=== PATIENT | female | born 1995 | race Caucasian/White ===

== ENCOUNTER → 2018-07-03 | Outpatient (CLI) | payer OTHER ==
[2018-07-06 00:40] LABS: C-PEPTIDE 7.5 ng/mL (1.1-4.4)
== END ==
LOC: M LAB 13:32
PROVIDERS: ATTEND Internal Medicine Endocrinology, Diabetes & Metabolism
DX: E11.65 Type 2 diabetes mellitus with hyperglycemia (principal); E04.0 Nontoxic diffuse goiter

== ENCOUNTER → 2018-07-31 | Outpatient (CLI) | payer OTHER | LOC: M LAB 16:29 | PROVIDERS: ATTEND Nurse Practitioner Family | DX: N91.2 Amenorrhea, unspecified (principal) ==

== ENCOUNTER → 2018-07-31 | Outpatient (CLI) | payer OTHER | LOC: M LAB 11:18 | PROVIDERS: ATTEND Internal Medicine Endocrinology, Diabetes & Metabolism | DX: E11.65 Type 2 diabetes mellitus with hyperglycemia (principal); E04.0 Nontoxic diffuse goiter ==

== ENCOUNTER 2018-09-05 07:14 | Emergency (ER) | payer OTHER ==
[~2018-09-05] VITALS: Ht 170.2 cm; Wt 109.1 kg
[2018-09-05] MEDS ORDERED: METF10004 PO (07:23)
[2018-09-05] MEDS ORDERED: LABE10TAB PO (07:23)
[2018-09-05] MEDS ORDERED: PREN1TAB14 PO (07:23)
[2018-09-05 08:34] LABS: BASO % 0.2 % (0.0-1.0); EOS # 0.1 10^3/uL (0.0-0.50); EOS % 1.1 % (0.0-3.0); HEMATOCRIT 35.7 % (36.0-47.0); HEMOGLOBIN 12.3 g/dl (12.0-15.5); LYMPH # 1.3 10^3/uL (1.5-6.5); LYMPH % 12.3 % (24.0-44.0); MEAN CORPUSCULAR HEMOGLOBIN 29.1 pg (27.0-33.0); MEAN CORPUSCULAR HGB CONC 34.5 g/dl (32.0-36.5); MEAN CORPUSCULAR VOLUME 84.6 fl (80.0-96.0); MONO # 0.6 10^3/uL (0.0-0.8); MONO % 5.5 % (0.0-5.0); NEUTROPHILS # 8.6 10^3/uL (1.8-7.7); NEUTROPHILS % 80.6 % (36.0-66.0); PLATELET COUNT, AUTOMATED 231 10^3/uL (150-450); RED BLOOD COUNT 4.22 10^6/uL (4.00-5.40); WHITE BLOOD COUNT 10.6 10^3/uL (4.0-10.0)
[2018-09-05 10:04] VITALS: BP 144/87
--- NOTE | 2018-09-05 10:05 | REP ---
FIRST TRIMESTER AND ENDOVAGINAL PROBE OB ULTRASOUND: 08/05/2018. Local history: Vaginal bleeding at 11 weeks. Findings: No prior study for this gestation. Transabdominal and endovaginal probes are utilized. There is a intrauterine gestational sac in the body and fundus of the uterus. By crown-rump length, it measures 6.1 cm corresponding to 12 weeks 4 days which would give an EDC of 03/16/2019. heart rate 160 and regular. There is an anterior fundal placenta with grade zero maturation characteristics. There is a subtle hypoechoic thin rim inferior to the placental tip measuring 4 mm thick x 35 x 35 mm. On EV probe, the cervix is slightly shortened at 2.3 cm. Color images of the cervix demonstrate multiple fairly prominent cervical vessels. There are no other findings. No visible pelvic free fluid. Impression: 1. Single intrauterine gestation at 12 weeks 4 days by crown-rump length which would give an EDC of 03/16/2019, by LMP EDC 03/12/2019. Heart rate 160 and regular. 2. Anterior fundal placenta, grade zero without previa. I suspect a subtle acute subchorionic hemorrhage inferior to placental tip 4 mm thick x 35 x 35 mm. 3. EV probe shows cervix slightly shortened at 2.3 cm. On color images, prominent cervical vessels are seen. Electronically Signed by Kannan Samuels MD 09/05/2018 09:14 P
[2018-09-06] MEDS ORDERED: LABE10TAB PO
[2018-09-06] MEDS ORDERED: METF10004 PO
[2018-09-06] MEDS ORDERED: PREN1TAB14 PO
== END 2018-09-05 10:10 | disposition home or self-care (01) ==
LOC: M ED 07:14
DX: O20.0 Threatened abortion (principal); O10.011 Pre-existing essential hypertension complicating pregnancy, first trimester; O24.111 Pre-existing type 2 diabetes mellitus, in pregnancy, first trimester; Z3A.12 12 weeks gestation of pregnancy; Z79.899 Other long term (current) drug therapy; O99.331 Smoking (tobacco) complicating pregnancy, first trimester; F17.210 Nicotine dependence, cigarettes, uncomplicated

== ENCOUNTER 2018-09-05 23:16 | Day surgery (SDC) | payer OTHER ==
[~2018-09-05] VITALS: Ht 175.3 cm; Wt 112.9 kg
[~2018-09-05 23:16] MED LIST: LABE10TAB PO; METF10004 PO; PREN1TAB14 PO
[2018-09-05] MEDS ORDERED: ONDANSETRON 4MG/2ML VIAL (J2405) As Ordered ONE (23:38)
[2018-09-05 23:39] LABS: BASO % 0.2 % (0.0-1.0); EOS # 0.1 10^3/uL (0.0-0.50); EOS % 0.5 % (0.0-3.0); HEMATOCRIT 33.6 % (36.0-47.0); HEMOGLOBIN 11.8 g/dl (12.0-15.5); LYMPH # 2.3 10^3/uL (1.5-6.5); LYMPH % 13.1 % (24.0-44.0); MEAN CORPUSCULAR HEMOGLOBIN 29.1 pg (27.0-33.0); MEAN CORPUSCULAR HGB CONC 35.1 g/dl (32.0-36.5); MONO # 1.1 10^3/uL (0.0-0.8); NEUTROPHILS % 79.8 % (36.0-66.0); PLATELET COUNT, AUTOMATED 300 10^3/uL (150-450); RED BLOOD COUNT 4.05 10^6/uL (4.00-5.40); WHITE BLOOD COUNT 17.6 10^3/uL (4.0-10.0)
[2018-09-05] MEDS ORDERED: NS 1,000 ML IV ONE (23:45)
[2018-09-05] MEDS ORDERED: ONDANSETRON 4MG/2ML VIAL (J2405) IV ONE (23:45)
[2018-09-05 23:50] LABS: INR 1.01; PROTHROMBIN TIME 13.4 SECONDS (12.1-14.4)
[2018-09-05 23:59] LABS: BLOOD UREA NITROGEN 8 MG/DL (7-18); CALCIUM LEVEL 8.9 MG/DL (8.5-10.1); CARBON DIOXIDE LEVEL 23 MEQ/L (21-32); CHLORIDE LEVEL 101 MEQ/L (98-107); CREATININE FOR GFR 0.58 MG/DL (0.55-1.30); GLOMERULAR FILTRATION RATE > 60.0 (>60); GLUCOSE, FASTING 170 MG/DL (70-100); SODIUM LEVEL 135 MEQ/L (136-145)
[2018-09-06] VITALS (7 sets, daily range): BP systolic 107–129; BP diastolic 54–79
[2018-09-06] MEDS ORDERED: LABE10TAB PO
[2018-09-06] MEDS ORDERED: fentaNYL 100 MCG/2 ML INJECTION (J3010) IV ONE
[2018-09-06] MEDS ORDERED: METF10004 PO
[2018-09-06] MEDS ORDERED: PREN1TAB14 PO
[2018-09-06] MEDS ORDERED: miSOPROStol 200 MCG TAB (S0191) As Ordered ONE (00:21)
[2018-09-06] MEDS ORDERED: METHYLERGONOVINE MALEATE 0.2 MG/ML VIAL (J2210) As Ordered ONE (00:22)
[2018-09-06] MEDS ORDERED: fentaNYL 100 MCG/2 ML INJECTION (J3010) As Ordered ONE (00:42)
[2018-09-06] MEDS ORDERED: dexameTHASONE 4 MG/ML 1ML VIAL (J1100) As Ordered ONE ×2 (00:42→00:47)
[2018-09-06] MEDS ORDERED: ONDANSETRON 4MG/2ML VIAL (J2405) As Ordered ONE ×2 (00:42→00:47)
[2018-09-06] MEDS ORDERED: MIDAZOLAM INJ 2 MG/2 ML VIAL (J2250) As Ordered ONE (00:42)
[2018-09-06] MEDS ORDERED: PROPOFOL 200 MG/20 ML VIAL As Ordered ONE (00:42)
[2018-09-06] MEDS ORDERED: LIDOCAINE 2% INJ 100 MG/5 ML SDV (FOR ANES.) As Ordered ONE (00:42)
[2018-09-06] MEDS ORDERED: ROCURONIUM BROMIDE 50 MG/5 ML VIAL As Ordered ONE (00:52)
[2018-09-06] MEDS ORDERED: ONDANSETRON 4MG/2ML VIAL (J2405) IV PRN (01:00)
[2018-09-06] MEDS ORDERED: fentaNYL 100 MCG/2 ML INJECTION (J3010) IV PRN (01:00)
[2018-09-06] MEDS ORDERED: LR 1,000 ML IV SCH ×2 (01:00→02:00)
[2018-09-06] MEDS ORDERED: PERCOCET 5MG/325MG TAB PO PRN (02:00)
[2018-09-06] MEDS: KETOROLAC 30 MG/ML VIAL (J1885) IV SCH ×2 (02:59→08:07)
[2018-09-06 07:58] LABS: HEMATOCRIT 25.6 % (36.0-47.0); MEAN CORPUSCULAR HEMOGLOBIN 29.5 pg (27.0-33.0); MEAN CORPUSCULAR HGB CONC 34.8 g/dl (32.0-36.5); MEAN CORPUSCULAR VOLUME 84.8 fl (80.0-96.0); PLATELET COUNT, AUTOMATED 226 10^3/uL (150-450); RED BLOOD COUNT 3.02 10^6/uL (4.00-5.40); WHITE BLOOD COUNT 14.2 10^3/uL (4.0-10.0)
[2018-09-06 08:14] LABS: HEMOGLOBIN 8.9 g/dl (12.0-15.5)
[2018-09-06] MEDS ORDERED: DOXYCYCLINE HYCLATE 100 MG TAB PO ONE (10:30)
--- NOTE | 2018-09-06 20:36 | RO ---
DATE OF PROCEDURE: 09/06/2018 PREPROCEDURE DIAGNOSIS: Missed . POSTPROCEDURE DIAGNOSIS: Missed . PROCEDURE: Evacuation and curettage SURGEON: Mandy Emerson MD INSTRUCTION DEAN: None. ANESTHESIA: General. ESTIMATED BLOOD LOSS: 800 mL. INTRAVENOUS FLUIDS: 1200 mL of lactated Ringer's solution. The patient also received one unit of packed red blood cells immediately postoperatively. SPECIMENS: Products of conception. ANTIBIOTICS: The patient received 200 mg of doxycycline postoperatively. OPERATIVE FINDINGS: A bedside ultrasound was performed that showed approximately a 13-week size fetus in the lower uterine segment, heart rate was observed. Exam under anesthesia: A large amount of clots were removed with active bleeding and cervix was dilated 3 cm with the fetus at the external os of the cervix. INDICATION FOR OPERATION: This patient is a 23-year-old who initially presented to the emergency room (ER) earlier that day with threatened miscarriage at 12 weeks and 4 days and she was discharged home in stable condition, with minimal amount of bleeding and followup in the office. She returned to the emergency department later that night after passing out at home following a large amount of bleeding. In the emergency department she was tachycardic with heart rate of 150s, initially hypertensive and with near syncopal episodes. I was called immediately to evaluate the patient. During my evaluation in the ER, she was actively bleeding, approximately a liter of blood loss in the ER. She was emergently taken down to the operating room, was consented for exam under anesthesia with dilation and curettage for incomplete . While preparing for exam under anesthesia, a bedside ultrasound was then performed, which demonstrated approximately a 13-week size fetus in the lower uterine segment with a large amount of clot within the uterus. Exam under anesthesia demonstrated some parts at the external os, and the cervix was dilated to 3 cm with a large amount of blood removed. Then, proceeded with evacuation of incomplete . DESCRIPTION OF PROCEDURE: The initial exam under anesthesia; the patient was then prepped and draped in a sterile fashion. A time-out in the operating room was then performed, identifying the patient, procedure to be performed, as well as drug allergies. A bivalve speculum was then reinserted, demonstrating a dilated cervix with parts at the external os. After removal of clots and bleeding, fetus was then teased out using Ring forceps, removing fetus intact. A #14 uterine curette was then advanced through the cervical os at the level of the fundus, and the uterus was then curetted in a 360-degree fashion with a moderate amount of tissue obtained. This was done in three passes. A sharp curette was then advanced through the cervical os to the level of the fundus and uterus was curetted in a 360-degree fashion with minimal amounts of tissue passed. Two final passes of uterine curette was then performed, it was productive of blood. The patient received a dose of 0.2 mg of Methergine for uterine hemostasis, as well as 800 mcg of misoprostol that was placed rectally. Bleeding again slowed down and became minimum. In and out catheter was then performed, productive of 100 mL of urine. Instruments were then removed from the patient's vagina. The patient was taken out of the lithotomy position, was awakened from general anesthesia and taken to recovery in stable condition. Counts were correct. MTDD
== END 2018-09-06 11:20 | disposition home or self-care (01) ==
LOC: M ED 23:16 → M SDC 23:39 → M MS5PR 09-06 02:35 → M SDC 09-06 02:35 → M MS5PR 09-06 11:20 → M SDC 09-06 11:20
PROVIDERS: ATTEND Obstetrics & Gynecology
DX: O02.1 Missed abortion (principal)
CPT/HCPCS: 36415; 59820; 80048; 85025; 85027; 85610; 85730; 86850; 86900; 86901; 86920; 88305; 96374; 96375; 96376; 99291; J1100; J1885; J2210; J2250; J2405; J3010

== ENCOUNTER 2018-09-21 02:40 | Emergency (ER) | payer OTHER ==
[~2018-09-21] VITALS: Ht 175.3 cm; Wt 110.5 kg
[2018-09-21 02:51] VITALS: BP 168/76
[2018-09-21] MEDS ORDERED: NS 500 ML IV ONE (03:30)
[2018-09-21] MEDS ORDERED: MORPHINE 4 MG/ML 1ML VIAL/SYRINGE (J2270) IV ONE (03:30)
[2018-09-21 03:33] LABS: BASO % 0.4 % (0.0-1.0); EOS # 0.1 10^3/uL (0.0-0.50); EOS % 0.8 % (0.0-3.0); HEMATOCRIT 29.1 % (36.0-47.0); HEMOGLOBIN 9.3 g/dl (12.0-15.5); LYMPH # 1.2 10^3/uL (1.5-6.5); LYMPH % 14.9 % (24.0-44.0); MEAN CORPUSCULAR HEMOGLOBIN 28.4 pg (27.0-33.0); MEAN CORPUSCULAR VOLUME 88.7 fl (80.0-96.0); MONO # 0.5 10^3/uL (0.0-0.8); MONO % 5.6 % (0.0-5.0); NEUTROPHILS # 6.5 10^3/uL (1.8-7.7); NEUTROPHILS % 78.1 % (36.0-66.0); PLATELET COUNT, AUTOMATED 287 10^3/uL (150-450); RED BLOOD COUNT 3.28 10^6/uL (4.00-5.40); WHITE BLOOD COUNT 8.3 10^3/uL (4.0-10.0)
[2018-09-21 03:55] LABS: ALT/SGPT 19 U/L (12-78); BILIRUBIN,DIRECT < 0.1 MG/DL (0.0-0.2); BILIRUBIN,TOTAL 0.2 MG/DL (0.2-1.0); BLOOD UREA NITROGEN 15 MG/DL (7-18); CALCIUM LEVEL 8.6 MG/DL (8.5-10.1); CARBON DIOXIDE LEVEL 27 MEQ/L (21-32); CHLORIDE LEVEL 108 MEQ/L (98-107); CREATININE FOR GFR 0.58 MG/DL (0.55-1.30); GLOMERULAR FILTRATION RATE > 60.0 (>60); GLUCOSE, FASTING 130 MG/DL (70-100); LIPASE 203 U/L (73-393); POTASSIUM SERUM 4.4 MEQ/L (3.5-5.1); SODIUM LEVEL 142 MEQ/L (136-145); TOTAL PROTEIN 7.2 GM/DL (6.4-8.2)
--- NOTE | 2018-09-21 05:12 | REPVR ---
EXAM: US Abdomen Limited, Right Upper Quadrant EXAM DATE/TIME: 09/21/2018 3:50 AM CLINICAL HISTORY: 23 years old, female; Pain; Abdominal pain; Epigastric; Additional info: Gallbladder eval TECHNIQUE: Real-time ultrasound of the abdomen with image documentation. Examination was focused on the right upper quadrant. COMPARISON: GALLBLADDER US 11/21/2014 4:02 PM FINDINGS: Liver: The liver is diffusely echogenic, consistent with fatty infiltration. Gallbladder: The gallbladder is unremarkable. No gallstones, gallbladder wall thickening or pericholecystic fluid. Negative sonographic March's sign. Common bile duct: Bile ducts are normal in caliber. CBD 4-5 mm. Pancreas: Pancreas is obscured by overlying bowel gas. Right kidney: The right kidney measures 14.3 cm in length and is unremarkable. Intraperitoneal space: No evidence of free fluid. IMPRESSION: 1. No acute abnormalities are identified. 2. No evidence of gallstones or biliary duct dilatation. 3. Fatty liver. Electronically signed by: Jean Marie Herrera On 09/21/2018 05:12:30 AM
== END 2018-09-21 05:35 | disposition home or self-care (01) ==
LOC: M ED 02:40
DX: K82.8 Other specified diseases of gallbladder (principal); E66.9 Obesity, unspecified; E11.9 Type 2 diabetes mellitus without complications; I10 Essential (primary) hypertension; K76.0 Fatty (change of) liver, not elsewhere classified; Z79.899 Other long term (current) drug therapy
CPT/HCPCS: 76705; 80048; 80076; 83690; 85025; 96361; 96374; 99284; J2270

== ENCOUNTER → 2018-10-02 | Outpatient (CLI) | payer OTHER ==
[2018-10-02 13:50] LABS: BLOOD UREA NITROGEN 12 MG/DL (7-18); CALCIUM LEVEL 9.1 MG/DL (8.5-10.1); CARBON DIOXIDE LEVEL 27 MEQ/L (21-32); CHLORIDE LEVEL 105 MEQ/L (98-107); CREATININE FOR GFR 0.51 MG/DL (0.55-1.30); GLOMERULAR FILTRATION RATE > 60.0 (>60); GLUCOSE, FASTING 90 MG/DL (70-100); POTASSIUM SERUM 4.4 MEQ/L (3.5-5.1); SODIUM LEVEL 140 MEQ/L (136-145)
== END ==
LOC: M LAB 12:25
PROVIDERS: ATTEND Internal Medicine Endocrinology, Diabetes & Metabolism
DX: E11.65 Type 2 diabetes mellitus with hyperglycemia (principal)

== ENCOUNTER → 2018-10-02 | Outpatient (CLI) | payer OTHER ==
[2018-10-03 10:40] LABS: DRVV SCREEN 32.9 SEC
[2018-10-03 10:48] LABS: PTT LUPUS TYPE ANTICOAG SCREEN 0.8 (0-1.2)
[2018-10-04 14:12] LABS: ANTI DOUBLE STRAND-DNA AB 1 IU/mL (0-9); ANTI THROMBIN 3 ANTIGEN IMMUNO 88 % (72-124); ANTI THROMBIN 3 FUNCT ACTIVITY 106 % (75-135); CARDIOLIPIN IGA ANTIBODY <9 APL U/mL (0-11); CARDIOLIPIN IGG ANTIBODY <9 GPL U/mL (0-14); CARDIOLIPIN IGM ANTIBODY <9 MPL U/mL (0-12); PROTEIN C FUNCTIONAL ACTIVITY 172 % (73-180); PROTEIN S FUNCTIONAL ACTIVITY 69 % (63-140); SSA SJOGRENS A <0.2 AI (0.0-0.9); SSB SJOGRENS B <0.2 AI (0.0-0.9)
== END ==
LOC: M LAB 12:19
PROVIDERS: ATTEND Obstetrics & Gynecology
DX: N96 Recurrent pregnancy loss (principal)

== ENCOUNTER 2019-05-26 10:11 | Emergency (ER) | payer OTHER ==
[~2019-05-26] VITALS: Ht 172.7 cm; Wt 96.3 kg
[2019-05-26] MEDS ORDERED: NEXP1IMP SC (10:29)
[2019-05-26] MEDS ORDERED: KETOROLAC 30 MG/ML VIAL (J1885) IV ONE (10:45)
[2019-05-26] MEDS ORDERED: NS 1,000 ML IV ONE (10:45)
[2019-05-26] MEDS ORDERED: ONDANSETRON 4MG/2ML VIAL (J2405) IV ONE (10:45)
[2019-05-26 10:49] LABS: BASO % 0.2 % (0.0-1.0); EOS % 0.4 % (0.0-3.0); HEMATOCRIT 39.1 % (36.0-47.0); LYMPH # 0.8 10^3/uL (1.5-5.0); LYMPH % 9.7 % (24.0-44.0); MEAN CORPUSCULAR HEMOGLOBIN 27.6 pg (27.0-33.0); MEAN CORPUSCULAR HGB CONC 33.2 g/dl (32.0-36.5); MONO # 0.2 10^3/uL (0.0-0.8); MONO % 2.7 % (0.0-5.0); NEUTROPHILS % 86.6 % (36.0-66.0); PLATELET COUNT, AUTOMATED 265 10^3/uL (150-450); RED BLOOD COUNT 4.71 10^6/uL (4.00-5.40); WHITE BLOOD COUNT 8.1 10^3/uL (4.0-10.0)
[2019-05-26 11:29] LABS: BLOOD UREA NITROGEN 9 MG/DL (7-18); CREATININE FOR GFR 0.56 MG/DL (0.55-1.30); GLOMERULAR FILTRATION RATE > 60.0 (>60); GLUCOSE, FASTING 161 MG/DL (70-100)
[2019-05-26 11:30] LABS: CARBON DIOXIDE LEVEL 24 MEQ/L (21-32); CHLORIDE LEVEL 108 MEQ/L (98-107); POTASSIUM SERUM 4.1 MEQ/L (3.5-5.1); SODIUM LEVEL 140 MEQ/L (136-145)
[2019-05-26 11:31] LABS: ALT/SGPT 22 U/L (12-78); BILIRUBIN,DIRECT < 0.1 MG/DL (0.0-0.2); BILIRUBIN,TOTAL 0.3 MG/DL (0.2-1.0)
[2019-05-26 11:32] LABS: ALBUMIN 4.2 GM/DL (3.2-5.2); LIPASE 170 U/L (73-393); TOTAL PROTEIN 7.4 GM/DL (6.4-8.2)
--- NOTE | 2019-05-26 11:34 | REP ---
Abdominal right upper quadrant ultrasound for right upper quadrant pain: There are are gallbladder calculi versus gallbladder sludge balls in the gallbladder neck. There is no gallbladder wall thickening or pericholecystic fluid. There is no intrahepatic or extrahepatic biliary duct dilatation. The common biliary duct measures 2 mm in diameter per the hepatic parenchyma is homogeneous but slightly hyperechoic compatible with hepato steatosis. There are no hepatic masses. The pancreas is obscured by bowel gas. The right kidney measures 12.7 x 6 point of by 71 0 cm and is normal size. There is no right renal calculus, hydronephrosis, solid mass or cystic mass. There is no right upper quadrant ascites. Impression: The study is limited because of bowel gas. There are sludge ball zone versus calculi versus combination in the gallbladder. There is no evidence of acute cholecystitis. No biliary duct dilatation. The pancreas is obscured by bowel gas. Electronically Signed by Janak Villalba MD 05/26/2019 11:25 A
[2019-05-26] MEDS ORDERED: ONDA4TAB6 PO (12:48)
[2019-05-26 12:55] VITALS: BP 181/84
== END 2019-05-26 13:08 | disposition home or self-care (01) ==
LOC: M ED 10:11
DX: K80.20 Calculus of gallbladder without cholecystitis without obstruction (principal); K82.8 Other specified diseases of gallbladder; E11.9 Type 2 diabetes mellitus without complications; I10 Essential (primary) hypertension; Z79.899 Other long term (current) drug therapy; Z79.3 Long term (current) use of hormonal contraceptives; F17.210 Nicotine dependence, cigarettes, uncomplicated
CPT/HCPCS: 76705; 80048; 80076; 83690; 84702; 85025; 96361; 96374; 96375; 99284; J1885; J2405

== ENCOUNTER 2019-05-28 09:46 | Inpatient (IN) | payer OTHER ==
[~2019-05-28] VITALS: Ht 172.7 cm; Wt 110.9 kg
[~2019-05-28 09:46] MED LIST changes: +NEXP1IMP SC; +ONDA4TAB6 PO
[2019-05-28] MEDS ORDERED: NS 1,000 ML IV ONE (10:45)
[2019-05-28 10:52] LABS: BASO % 0.1 % (0.0-1.0); EOS % 0.1 % (0.0-3.0); HEMATOCRIT 35.8 % (36.0-47.0); LYMPH # 1.1 10^3/uL (1.5-5.0); LYMPH % 7.5 % (24.0-44.0); MEAN CORPUSCULAR HGB CONC 33.5 g/dl (32.0-36.5); MEAN CORPUSCULAR VOLUME 83.4 fl (80.0-96.0); MONO # 1.3 10^3/uL (0.0-0.8); MONO % 8.8 % (0.0-5.0); NEUTROPHILS # 12.3 10^3/uL (1.5-8.5); PLATELET COUNT, AUTOMATED 229 10^3/uL (150-450); RED BLOOD COUNT 4.29 10^6/uL (4.00-5.40); WHITE BLOOD COUNT 14.8 10^3/uL (4.0-10.0)
[2019-05-28] MEDS ORDERED: KETOROLAC 30 MG/ML VIAL (J1885) IV ONE (11:00)
--- NOTE | 2019-05-28 11:23 | REP ---
Right upper quadrant sonography: History: Right upper quadrant pain. History of stones. Comparison sonography is from just 2 days ago, May 26, 2019. Sonographic findings: Scanning through right upper quadrant of the abdomen demonstrates two mobile echogenic shadowing foci measuring 6 and 9 mm in greatest diameter respectively in the gallbladder neck consistent with gallstones. Gallbladder wall measures 0.34 mm in thickness which is borderline. The common bile duct is normal measuring 0.5 cm in greatest diameter. No focal liver lesion is seen. Pancreas is obscured by abdominal gas. There is no evidence of ascites or right renal abnormality. The right kidney measures 14.1 x 6.8 x 6.0 cm. Impression: There are two mobile shadowing echogenic foci in the gallbladder neck region consistent with gallstones. Borderline gallbladder wall thickness. No pericholecystic fluid. Normal CBD. Electronically Signed by Ang Villalpando MD 05/28/2019 12:44 P
[2019-05-28 11:45] LABS: ALBUMIN 3.6 GM/DL (3.2-5.2); ALT/SGPT 27 U/L (12-78); BILIRUBIN,DIRECT 0.7 MG/DL (0.0-0.2); BILIRUBIN,TOTAL 1.9 MG/DL (0.2-1.0); BLOOD UREA NITROGEN 8 MG/DL (7-18); CALCIUM LEVEL 8.7 MG/DL (8.5-10.1); CARBON DIOXIDE LEVEL 24 MEQ/L (21-32); CHLORIDE LEVEL 103 MEQ/L (98-107); CK-MB VALUE MASS < 1.0 NG/ML (<3.6); CPK CREATINE PHOSPHOKINASE 28 U/L (26-192); CREATININE FOR GFR 0.62 MG/DL (0.55-1.30); GLOMERULAR FILTRATION RATE > 60.0 (>60); GLUCOSE, FASTING 134 MG/DL (70-100); LIPASE 134 U/L (73-393); MB/CK RELATIVE INDEX 3.57 (< OR =4); POTASSIUM SERUM 3.7 MEQ/L (3.5-5.1); SODIUM LEVEL 136 MEQ/L (136-145); TOTAL PROTEIN 6.7 GM/DL (6.4-8.2); TROPONIN I < 0.02 NG/ML (< 0.10)
[2019-05-28] MEDS ORDERED: cefTRIAXone SOD 1 GM in D5W MINI-BAG PLUS 50 ML IV ONE (12:15)
[2019-05-28] MEDS ORDERED: ONDA4TAB6 PO (12:53)
[2019-05-28] MEDS ORDERED: GLUCAGON FOR INJ 1 MG VIAL (J1610) SC PRN (14:00)
[2019-05-28] MEDS ORDERED: GLUCOSE 4 GM CHEW TABLET PO PRN (14:00)
[2019-05-28] MEDS ORDERED: MORPHINE 2 MG/ML 1ML VIAL (J2270) IV PRN (14:00)
[2019-05-28] MEDS ORDERED: DEXTROSE 50% 50 ML SYRINGE IV PRN (14:00)
[2019-05-28] MEDS ORDERED: ONDANSETRON 4MG/2ML VIAL (J2405) IV PRN (14:00)
[2019-05-28] MEDS ORDERED: ACETAMINOPHEN TAB 650MG DOSE (2X325MG) PO PRN (14:00)
[2019-05-28] MEDS: NS 1,000 ML IV SCH (14:54)
[2019-05-28 15:30] VITALS: BP 129/72
[2019-05-28] MEDS: PIPERACILLIN/TAZOBACTAM SOD 3.375 GM in D5W MINI-BAG PLUS 50 ML IV SCH ×2 (16:25→21:27)
[2019-05-28] MEDS: HumaLOG INSULIN (NovoLOG) PER UNIT SC SCH ×2 (18:00→23:24)
[2019-05-28] MEDS: KETOROLAC 30 MG/ML VIAL (J1885) IV SCH ×2 (18:16→23:19)
[2019-05-28 21:00] VITALS: BP 146/96
[2019-05-28] MEDS: PANTOPRAZOLE 40MG INJ (PROTONIX) (C9113) IV SCH (21:17)
[2019-05-28] MEDS: LABETALOL 100 MG TAB PO SCH (21:17)
--- NOTE | 2019-05-28 22:52 | HPE ---
DATE: 05/28/2019 CHIEF COMPLAINT: Right upper quadrant pain, history of gallstones. BRIEF HISTORY OF PRESENT ILLNESS: The patient is a 24-year-old female who went to the emergency room about 2 days ago for some abdominal pain that was persistent for the last day or so prior to that visit to the emergency room and essentially presented with some symptomatic biliary colic/possible subacute cholecystitis. When she was seen, her white count was normal except for a left shift, and she had normal liver function tests. She had some mild discomfort with palpation but no true peritoneal signs. She was discharged home with the plans to follow up in the surgical office. She presents with persistence of the abdominal pain in the right upper quadrant, and it seemed to be getting worse over today's entire day. And she presents with evidence of tenderness, pain in the right upper quadrant with positive March's both on ultrasound as well as on physical exam with elevated white count and mildly elevated bilirubin. Her past medical history is significant for a history of diabetes mellitus, history of hypertension, history of pelvic inflammatory disease, history of miscarriage, history of tonsillectomy. PHYSICAL EXAM: Reveals a 24-year-old female who looks stated age. HEENT is unremarkable. Neck: Supple without adenopathy. Lungs are clear to auscultation without crackles, wheezes or rhonchi. Heart is regular. Abdomen is soft, nondistended, but she definitely has some tenderness and pain in the right upper quadrant with a positive March's. Extremities: Warm, well perfused. IMPRESSION AND PLAN: The patient has evidence of cholecystitis on her clinical exam. I do feel that it is reasonable to give her IV fluids, IV antibiotics and will treat her with fluids for now. Will see how she does over the next 12 hours. The second issue obviously is the elevated bilirubin. Without elevated alkaline phosphatase or AST, ALT, I feel it is less likely to be a biliary duct obstruction. However, if her liver function tests seem to increase tomorrow, then I would recommend that we proceed with an magnetic resonance cholangiopancreatography (MRCP). And we will see how she does overnight being nothing by mouth and with antibiotics on board.
--- NOTE | 2019-05-28 23:21 | ECGEPIP ---
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
[2019-05-29] VITALS (7 sets, daily range): BP systolic 124–164; BP diastolic 71–96
[2019-05-29] MEDS: NS 1,000 ML IV SCH (00:48)
[2019-05-29] MEDS: PIPERACILLIN/TAZOBACTAM SOD 3.375 GM in D5W MINI-BAG PLUS 50 ML IV SCH ×4 (03:31→22:18)
[2019-05-29] MEDS: HumaLOG INSULIN (NovoLOG) PER UNIT SC SCH ×3 (06:00→18:00)
[2019-05-29] MEDS: KETOROLAC 30 MG/ML VIAL (J1885) IV SCH ×3 (06:09→17:58)
[2019-05-29 06:51] LABS: HEMATOCRIT 33.4 % (36.0-47.0); HEMOGLOBIN 10.6 g/dl (12.0-15.5); MEAN CORPUSCULAR HEMOGLOBIN 27.4 pg (27.0-33.0); MEAN CORPUSCULAR HGB CONC 31.7 g/dl (32.0-36.5); MEAN CORPUSCULAR VOLUME 86.3 fl (80.0-96.0); PLATELET COUNT, AUTOMATED 215 10^3/uL (150-450); RED BLOOD COUNT 3.87 10^6/uL (4.00-5.40); WHITE BLOOD COUNT 8.2 10^3/uL (4.0-10.0)
[2019-05-29 07:25] LABS: ALBUMIN 3.1 GM/DL (3.2-5.2); ALT/SGPT 29 U/L (12-78); BLOOD UREA NITROGEN 12 MG/DL (7-18); CALCIUM LEVEL 8.7 MG/DL (8.5-10.1); CARBON DIOXIDE LEVEL 26 MEQ/L (21-32); CHLORIDE LEVEL 110 MEQ/L (98-107); CREATININE FOR GFR 0.52 MG/DL (0.55-1.30); GLOMERULAR FILTRATION RATE > 60.0 (>60); GLUCOSE, FASTING 93 MG/DL (70-100); POTASSIUM SERUM 3.6 MEQ/L (3.5-5.1); SODIUM LEVEL 141 MEQ/L (136-145); TOTAL PROTEIN 6.9 GM/DL (6.4-8.2)
[2019-05-29] MEDS: PANTOPRAZOLE 40MG INJ (PROTONIX) (C9113) IV SCH ×2 (09:15→20:52)
[2019-05-29] MEDS: LABETALOL 100 MG TAB PO SCH ×2 (09:15→20:52)
--- NOTE | 2019-05-29 14:04 | IPN ---
DATE: 05/29/2019 The patient has made some good progress at this time and is much better than she was last night, but still having some discomfort and pain in the right upper quadrant. Overall she has been afebrile. White count is down to normal. On her physical exam, she still has some mild tenderness to deep palpation in the right upper quadrant, but without significant guarding, rebound or peritoneal signs. IMPRESSION AND PLAN: The patient has resolving cholecystitis. Will start her on a clear liquid diet. Fortunately, her liver function tests have returned to normal suggesting that she has no evidence of common bile duct stone and her cholecystitis is improving. Thus, will see how she does with the clear liquids today. Dr. Lovell will be covering her over the ensuing few days and he will determine our next course of action.
[2019-05-29] MEDS ORDERED: HumaLOG INSULIN (NovoLOG) PER UNIT SC SCH (21:00)
[2019-05-29] MEDS ORDERED: GLUCOSE 4 GM CHEW TABLET PO PRN (22:00)
[2019-05-29] MEDS ORDERED: DEXTROSE 50% 50 ML SYRINGE IV PRN (22:00)
[2019-05-29] MEDS ORDERED: GLUCAGON FOR INJ 1 MG VIAL (J1610) SC PRN (22:00)
[2019-05-30] VITALS: BP 154/83
[2019-05-30 04:00] VITALS: BP 157/83
[2019-05-30] MEDS ORDERED: LevoFLOXacin 500 MG TABLET PO SCH (06:00)
[2019-05-30] MEDS: KETOROLAC 30 MG/ML VIAL (J1885) IV SCH ×2 (06:00)
[2019-05-30] MEDS ORDERED: HumaLOG INSULIN (NovoLOG) PER UNIT SC SCH (07:30)
[2019-05-30 07:32] LABS: HEMATOCRIT 34.2 % (36.0-47.0); HEMOGLOBIN 11.5 g/dl (12.0-15.5); MEAN CORPUSCULAR HGB CONC 33.6 g/dl (32.0-36.5); MEAN CORPUSCULAR VOLUME 83.2 fl (80.0-96.0); PLATELET COUNT, AUTOMATED 249 10^3/uL (150-450); RED BLOOD COUNT 4.11 10^6/uL (4.00-5.40)
[2019-05-30 07:59] LABS: ALBUMIN 3.3 GM/DL (3.2-5.2); ALT/SGPT 53 U/L (12-78); BILIRUBIN,TOTAL 0.7 MG/DL (0.2-1.0); BLOOD UREA NITROGEN 10 MG/DL (7-18); CALCIUM LEVEL 8.9 MG/DL (8.5-10.1); CARBON DIOXIDE LEVEL 25 MEQ/L (21-32); CHLORIDE LEVEL 107 MEQ/L (98-107); CREATININE FOR GFR 0.47 MG/DL (0.55-1.30); GLOMERULAR FILTRATION RATE > 60.0 (>60); GLUCOSE, FASTING 102 MG/DL (70-100); POTASSIUM SERUM 3.7 MEQ/L (3.5-5.1); SODIUM LEVEL 143 MEQ/L (136-145); TOTAL PROTEIN 6.7 GM/DL (6.4-8.2)
[2019-05-30 08:00] VITALS: BP 168/97
[2019-05-30] MEDS ORDERED: LEVA1TAB2 PO (08:55)
[2019-05-30] MEDS: PANTOPRAZOLE 40MG INJ (PROTONIX) (C9113) IV SCH (09:00)
[2019-05-30 09:20] VITALS: BP 168/97
[2019-05-30] MEDS: LABETALOL 100 MG TAB PO SCH (09:20)
--- NOTE | 2019-06-24 18:23 | DSES ---
DATE OF ADMISSION: 05/28/2019 DATE OF DISCHARGE: 05/30/2019 PRINCIPAL DIAGNOSIS: Acute cholecystitis. ASSOCIATED DIAGNOSIS: History of diabetes mellitus. History of hypertension. History of pelvic inflammatory disease. BRIEF HISTORY OF PRESENT ILLNESS: The patient is 24-year-old female who presented to the emergency room about 2 days prior with abdominal pain and then returned to the emergency room with symptomatic biliary colic/possible subacute cholecystitis. She did have a normal white count except for a left shift and had some normal liver function tests at that time 2 days ago and returns with an elevated white count today as well as mildly elevated bilirubin, with some right upper quadrant tenderness and pain. HOSPITAL COURSE SUMMARY: The patient was admitted with the above diagnosis of acute cholecystitis. With an elevated bilirubin, the concern was that there was a possible common bile duct stone. Followup liver function tests (LFTs) in the morning, though, returned to normal, and her white count normalized as well. She was started on a clear liquid diet. Her diet was advanced to a regular diet, and she was discharged home on oral antibiotics with a plan for outpatient laparoscopic cholecystectomy. She was discharged on her usual medications, which include Nexplanon implant, labetalol, metformin, Zofran and Levaquin 500 mg by mouth daily.
== END 2019-05-30 11:00 | disposition home or self-care (01) ==
LOC: M ED 09:46 → M ED INP 13:55 → M PED 15:15
PROVIDERS: ADMIT Surgery; ATTEND Surgery
DX: K81.0 Acute cholecystitis (principal); E11.9 Type 2 diabetes mellitus without complications; I10 Essential (primary) hypertension; N73.9 Female pelvic inflammatory disease, unspecified; Z79.84 Long term (current) use of oral hypoglycemic drugs; Z79.899 Other long term (current) drug therapy

== ENCOUNTER → 2020-01-09 | Outpatient (REF) | payer SELFPAY ==
[~2020-01-09] MED LIST changes: +LEVA1TAB2 PO
[2020-01-09 20:59] LABS: CHLAMYDIA DNA AMPLIFICATION NEGATIVE (NEGATIVE); GC DNA AMPLIFICATION NEGATIVE (NEGATIVE)
== END ==
LOC: M LAB REF 16:31
PROVIDERS: ATTEND Physician Assistant
DX: Z11.3 Encounter for screening for infections with a predominantly sexual mode of transmission (principal); Z12.4 Encounter for screening for malignant neoplasm of cervix
CPT/HCPCS: 87491; 87591; 87624; G0123

== ENCOUNTER → 2020-09-09 | Outpatient (REF) | payer OTHER ==
[~2020-09-09] MED LIST changes: +LABE100T4 PO; -LABE10TAB PO
[2020-09-09 12:00] LABS: BASO % 0.5 % (0.0-1.0); EOS # 0.4 10^3/uL (0.0-0.5); EOS % 4.3 % (0.0-3.0); HEMATOCRIT 42.5 % (36.0-47.0); HEMOGLOBIN 14.2 g/dl (12.0-15.5); LYMPH # 2.2 10^3/uL (1.5-5.0); LYMPH % 26.7 % (24.0-44.0); MEAN CORPUSCULAR HEMOGLOBIN 28.5 pg (27.0-33.0); MEAN CORPUSCULAR HGB CONC 33.4 g/dl (32.0-36.5); MEAN CORPUSCULAR VOLUME 85.2 fl (80.0-96.0); MONO # 0.7 10^3/uL (0.0-0.8); NEUTROPHILS % 60.1 % (36.0-66.0); PLATELET COUNT, AUTOMATED 260 10^3/uL (150-450); RED BLOOD COUNT 4.99 10^6/uL (4.00-5.40); WHITE BLOOD COUNT 8.3 10^3/uL (4.0-10.0)
[2020-09-09 12:24] LABS: HEMOGLOBIN A1c 6.5 %
[2020-09-09 12:39] LABS: MALB URINE SIEMENS 66.6 MG/L; MAU/CREAT RATIO 51.2 MCG/MG (0.0-30.0)
[2020-09-09 12:51] LABS: ALBUMIN 3.8 GM/DL (3.2-5.2); ALT/SGPT 33 U/L (12-78); BILIRUBIN,TOTAL 0.3 MG/DL (0.2-1.0); BLOOD UREA NITROGEN 12 MG/DL (7-18); CALCIUM LEVEL 9.2 MG/DL (8.5-10.1); CARBON DIOXIDE LEVEL 26 MEQ/L (21-32); CHLORIDE LEVEL 103 MEQ/L (98-107); CHOLESTEROL LEVEL 179 MG/DL (<200); CHOLESTEROL RISK RATIO 5.593 (<5); CREATININE FOR GFR 0.58 MG/DL (0.55-1.30); GLOMERULAR FILTRATION RATE > 60.0 (>60); GLUCOSE, FASTING 152 MG/DL (70-100); HDL CHOLESTEROL 32 MG/DL (>40); NON-HDL-C 147 MG/DL; POTASSIUM SERUM 4.3 MEQ/L (3.5-5.1); SODIUM LEVEL 137 MEQ/L (136-145); TOTAL PROTEIN 6.9 GM/DL (6.4-8.2); TRIGLYCERIDES LEVEL 460 MG/DL (<150)
== END ==
LOC: M LAB REF 11:23
PROVIDERS: ATTEND Pediatrics
DX: E11.69 Type 2 diabetes mellitus with other specified complication (principal)

== ENCOUNTER → 2022-07-27 | Outpatient (REF) | payer OTHER, MEDICAID ==
[~2022-07-27] MED LIST changes: +ETON68IM SC; -LABE100T4 PO; +LABE100T6 PO; -NEXP1IMP SC
[2022-07-27 17:18] LABS: ALBUMIN 3.8 G/DL (3.2-5.2); ALKALINE PHOSPHATASE 43 U/L (46-116); ALT/SGPT 18 U/L (7.0-40); AST/SGOT 13 U/L (<34); BILIRUBIN,TOTAL 0.3 MG/DL (0.3-1.2); BLOOD UREA NITROGEN 12 MG/DL (9-23); CALCIUM LEVEL 9.1 MG/DL (8.5-10.1); CARBON DIOXIDE LEVEL 26 MMOL/L (20-31); CHLORIDE LEVEL 102 MMOL/L (98-107); CHOLESTEROL LEVEL 201 MG/DL (<200); CHOLESTEROL RISK RATIO 5.82 (<5); CREATININE FOR GFR 0.45 MG/DL (0.55-1.30); GLOMERULAR FILTRATION RATE > 60.0 (>60); GLUCOSE, FASTING 160 MG/DL (60-100); HDL CHOLESTEROL 34.5 MG/DL (>40); NON-HDL-C 167 MG/DL; POTASSIUM SERUM 4.6 MMOL/L (3.5-5.1); SODIUM LEVEL 137 MMOL/L (136-145); TOTAL PROTEIN 6.5 G/DL (5.7-8.2); TRIGLYCERIDES LEVEL 742 MG/DL (<150)
[2022-07-27 17:37] LABS: HEMOGLOBIN A1c 6.6 % (4.0-6.0)
== END ==
LOC: M LAB REF 16:27
PROVIDERS: ATTEND Physician Assistant
DX: E78.2 Mixed hyperlipidemia (principal); E11.69 Type 2 diabetes mellitus with other specified complication

== ENCOUNTER → 2022-11-10 | Outpatient (REF) | payer OTHER, MEDICAID ==
[2022-11-10 18:28] LABS: HEMOGLOBIN A1c 6.8 % (4.0-6.0)
[2022-11-10 18:44] LABS: ALBUMIN 3.7 G/DL (3.2-5.2); ALKALINE PHOSPHATASE 46 U/L (46-116); ALT/SGPT 32 U/L (7.0-40); AST/SGOT 15 U/L (<34); BILIRUBIN,TOTAL 0.3 MG/DL (0.3-1.2); BLOOD UREA NITROGEN 12 MG/DL (9-23); CALCIUM LEVEL 9.1 MG/DL (8.5-10.1); CARBON DIOXIDE LEVEL 28 MMOL/L (20-31); CHLORIDE LEVEL 102 MMOL/L (98-107); CHOLESTEROL LEVEL 202 MG/DL (<200); CHOLESTEROL RISK RATIO 5.95 (<5); CREATININE FOR GFR 0.51 MG/DL (0.55-1.30); GLOMERULAR FILTRATION RATE > 60.0 (>60); GLUCOSE, FASTING 161 MG/DL (60-100); HDL CHOLESTEROL 33.9 MG/DL (>40); NON-HDL-C 168.1 MG/DL; POTASSIUM SERUM 4.5 MMOL/L (3.5-5.1); SODIUM LEVEL 138 MMOL/L (136-145); TOTAL PROTEIN 6.5 G/DL (5.7-8.2); TRIGLYCERIDES LEVEL 815 MG/DL (<150)
== END ==
LOC: M LAB REF 17:52
PROVIDERS: ATTEND Physician Assistant
DX: E11.69 Type 2 diabetes mellitus with other specified complication (principal); E78.2 Mixed hyperlipidemia

== ENCOUNTER → 2023-02-14 | Outpatient (REF) | payer OTHER ==
[2023-02-14 18:27] LABS: ALBUMIN 3.6 G/DL (3.2-5.2); ALKALINE PHOSPHATASE 38 U/L (46-116); ALT/SGPT 28 U/L (7.0-40); AST/SGOT 29 U/L (<34); BILIRUBIN,TOTAL 0.5 MG/DL (0.3-1.2); BLOOD UREA NITROGEN 11 MG/DL (9-23); CALCIUM LEVEL 8.9 MG/DL (8.5-10.1); CARBON DIOXIDE LEVEL 26 MMOL/L (20-31); CHLORIDE LEVEL 101 MMOL/L (98-107); CHOLESTEROL LEVEL 199 MG/DL (<200); CREATININE FOR GFR 0.41 MG/DL (0.55-1.30); GLOMERULAR FILTRATION RATE > 60.0 (>60); GLUCOSE, FASTING 165 MG/DL (60-100); HDL CHOLESTEROL 38.2 MG/DL (>40); NON-HDL-C 160.8 MG/DL; POTASSIUM SERUM 4.1 MMOL/L (3.5-5.1); SODIUM LEVEL 137 MMOL/L (136-145); TOTAL PROTEIN 6.3 G/DL (5.7-8.2); TRIGLYCERIDES LEVEL 555 MG/DL (<150)
[2023-02-14 18:29] LABS: THYROID STIMULATING HORMONE 2.241 uIU/ML (0.55-4.78)
== END ==
LOC: M LAB REF 16:28
PROVIDERS: ATTEND Physician Assistant
DX: E78.2 Mixed hyperlipidemia (principal); E03.9 Hypothyroidism, unspecified; E11.69 Type 2 diabetes mellitus with other specified complication

== ENCOUNTER 2023-06-23 19:36 | Emergency (ER) | payer OTHER ==
[~2023-06-23] VITALS: Ht 170.2 cm; Wt 121.8 kg
[2023-06-23 19:36] VITALS: TEMP 97.5; O2SAT 97
[2023-06-23 19:45] VITALS: BP 176/108
== END 2023-06-23 23:33 | disposition left against medical advice (07) ==
LOC: M ED 19:36
DX: Z53.21 Procedure and treatment not carried out due to patient leaving prior to being seen by health care provider (principal)

== ENCOUNTER → 2023-10-16 | Outpatient (REF) | payer OTHER, SELFPAY ==
[2023-10-16 17:16] LABS: BASO # 0.1 10^3/uL (0.0-0.2); BASO % 0.8 % (0.0-1.0); EOS # 0.2 10^3/uL (0.0-0.5); EOS % 3.7 % (0.0-3.0); HEMOGLOBIN 13.9 g/dl (12.0-15.5); LYMPH % 30.8 % (24.0-44.0); MEAN CORPUSCULAR HEMOGLOBIN 29.6 pg (27.0-33.0); MEAN CORPUSCULAR HGB CONC 34.8 g/dl (32.0-36.5); MEAN CORPUSCULAR VOLUME 85.1 fl (80.0-96.0); MONO # 0.5 10^3/uL (0.0-0.8); NEUTROPHILS # 3.7 10^3/uL (1.5-8.5); NEUTROPHILS % 57.2 % (36.0-66.0); PLATELET COUNT, AUTOMATED 269 10^3/uL (150-450); WHITE BLOOD COUNT 6.4 10^3/uL (4.0-10.0)
[2023-10-16 17:22] LABS: CREATININE, URINE 105.8 MG/DL; MAU/CREAT RATIO 11.3 MCG/MG (0.0-30.0)
[2023-10-16 17:49] LABS: HEMOGLOBIN A1c 7.5 % (4.0-6.0)
[2023-10-16 17:50] LABS: TOTAL 25(OH) VITAMIN D 13.4 NG/ML (20.0-100.0)
[2023-10-16 17:51] LABS: ALBUMIN 3.6 G/DL (3.2-5.2); ALKALINE PHOSPHATASE 40 U/L (46-116); ALT/SGPT 23 U/L (7.0-40); AST/SGOT 12 U/L (<34); BILIRUBIN,TOTAL 0.2 MG/DL (0.3-1.2); BLOOD UREA NITROGEN 10 MG/DL (9-23); CARBON DIOXIDE LEVEL 25 MMOL/L (20-31); CHLORIDE LEVEL 102 MMOL/L (98-107); CHOLESTEROL LEVEL 170 MG/DL (<200); CHOLESTEROL RISK RATIO 4.15 (<5); GLOMERULAR FILTRATION RATE > 60.0 (>60); GLUCOSE, FASTING 191 MG/DL (60-100); HDL CHOLESTEROL 40.9 MG/DL (>40); NON-HDL-C 129.1 MG/DL; POTASSIUM SERUM 4.7 MMOL/L (3.5-5.1); SODIUM LEVEL 136 MMOL/L (136-145); THYROID STIMULATING HORMONE 2.248 uIU/ML (0.55-4.78); TOTAL PROTEIN 6.4 G/DL (5.7-8.2); TRIGLYCERIDES LEVEL 420 MG/DL (<150)
== END ==
LOC: M LAB REF 16:15
PROVIDERS: ATTEND Physician Assistant
DX: E11.69 Type 2 diabetes mellitus with other specified complication (principal); E78.5 Hyperlipidemia, unspecified

== ENCOUNTER → 2023-11-24 | Outpatient (REF) | payer OTHER | LOC: M LAB REF 17:28 | PROVIDERS: ATTEND Physician Assistant | DX: Z01.419 Encounter for gynecological examination (general) (routine) without abnormal findings (principal); Z11.3 Encounter for screening for infections with a predominantly sexual mode of transmission ==

== ENCOUNTER → 2024-02-16 | Outpatient (REF) | payer OTHER ==
[~2024-02-16] MED LIST changes: +ONDA-282 PO; -ONDA4TAB6 PO
[2024-02-16 18:05] LABS: HEMOGLOBIN A1c 7.8 % (4.0-6.0)
[2024-02-16 18:11] LABS: TOTAL 25(OH) VITAMIN D 36.6 NG/ML (20.0-100.0)
[2024-02-16 18:12] LABS: ALBUMIN 3.4 G/DL (3.2-5.2); ALKALINE PHOSPHATASE 43 U/L (46-116); ALT/SGPT 28 U/L (7.0-40); AST/SGOT 26 U/L (<34); BILIRUBIN,TOTAL 0.2 MG/DL (0.3-1.2); BLOOD UREA NITROGEN 11 MG/DL (9-23); CALCIUM LEVEL 8.9 MG/DL (8.5-10.1); CARBON DIOXIDE LEVEL 22 MMOL/L (20-31); CHLORIDE LEVEL 105 MMOL/L (98-107); CHOLESTEROL LEVEL 217 MG/DL (<200); CREATININE FOR GFR 0.36 MG/DL (0.55-1.30); GLOMERULAR FILTRATION RATE > 60.0 (>60); GLUCOSE, FASTING 202 MG/DL (60-100); HDL CHOLESTEROL 30.1 MG/DL (>40); NON-HDL-C 186.9 MG/DL; POTASSIUM SERUM 4.1 MMOL/L (3.5-5.1); SODIUM LEVEL 136 MMOL/L (136-145); TOTAL PROTEIN 6.1 G/DL (5.7-8.2); TRIGLYCERIDES LEVEL 935 MG/DL (<150)
== END ==
LOC: M LAB REF 16:27
PROVIDERS: ATTEND Physician Assistant
DX: E78.5 Hyperlipidemia, unspecified (principal); E55.9 Vitamin D deficiency, unspecified; E11.69 Type 2 diabetes mellitus with other specified complication

== ENCOUNTER → 2024-04-16 | Outpatient (REF) | payer OTHER | LOC: M LAB REF 16:35 | PROVIDERS: ATTEND Physician Assistant | DX: J06.9 Acute upper respiratory infection, unspecified (principal) ==

== ENCOUNTER → 2024-05-20 | Outpatient (REF) | payer OTHER ==
[2024-05-20 18:41] LABS: HEMOGLOBIN A1c 5.7 % (4.0-6.0)
[2024-05-20 18:45] LABS: ALBUMIN 3.6 G/DL (3.2-5.2); ALKALINE PHOSPHATASE 36 U/L (35-104); ALT/SGPT 29 U/L (7.0-40); AST/SGOT 11 U/L (<34); BILIRUBIN,TOTAL 0.3 MG/DL (0.3-1.2); BLOOD UREA NITROGEN 16 MG/DL (9-23); CALCIUM LEVEL 9.2 MG/DL (8.5-10.1); CARBON DIOXIDE LEVEL 24 MMOL/L (20-31); CHLORIDE LEVEL 105 MMOL/L (98-107); CHOLESTEROL LEVEL 179 MG/DL (<200); CHOLESTEROL RISK RATIO 4.91 (<5); CREATININE FOR GFR 0.41 MG/DL (0.55-1.30); GLOMERULAR FILTRATION RATE > 60.0 (>60); GLUCOSE, FASTING 119 MG/DL (60-100); HDL CHOLESTEROL 36.4 MG/DL (>40); LDL CHOLESTEROL 95.2 MG/DL (<100); NON-HDL-C 142.6 MG/DL; POTASSIUM SERUM 4.1 MMOL/L (3.5-5.1); SODIUM LEVEL 139 MMOL/L (136-145); TOTAL PROTEIN 6.6 G/DL (5.7-8.2); TRIGLYCERIDES LEVEL 237 MG/DL (<150)
== END ==
LOC: M LAB REF 17:10
PROVIDERS: ATTEND Physician Assistant
DX: E78.5 Hyperlipidemia, unspecified (principal); E11.65 Type 2 diabetes mellitus with hyperglycemia

== ENCOUNTER → 2024-08-21 | Outpatient (CLI) | payer OTHER ==
[2024-08-21 14:09] LABS: HEMOGLOBIN A1c 5.6 % (4.0-6.0)
[2024-08-21 14:21] LABS: ALBUMIN 3.8 G/DL (3.2-5.2); ALKALINE PHOSPHATASE 35 U/L (35-104); ALT/SGPT 16 U/L (7.0-40); AST/SGOT 10 U/L (<34); BILIRUBIN,TOTAL 0.4 MG/DL (0.3-1.2); BLOOD UREA NITROGEN 12 MG/DL (9-23); CALCIUM LEVEL 8.9 MG/DL (8.5-10.1); CARBON DIOXIDE LEVEL 27 MMOL/L (20-31); CHLORIDE LEVEL 102 MMOL/L (98-107); CHOLESTEROL LEVEL 178 MG/DL (<200); CHOLESTEROL RISK RATIO 3.38 (<5); CREATININE FOR GFR 0.48 MG/DL (0.55-1.30); GLOMERULAR FILTRATION RATE > 60.0 (>60); GLUCOSE, FASTING 109 MG/DL (60-100); HDL CHOLESTEROL 52.6 MG/DL (>40); LDL CHOLESTEROL 101.4 MG/DL (<100); NON-HDL-C 125.4 MG/DL; POTASSIUM SERUM 4.3 MMOL/L (3.5-5.1); SODIUM LEVEL 139 MMOL/L (136-145); TOTAL PROTEIN 6.9 G/DL (5.7-8.2); TRIGLYCERIDES LEVEL 120 MG/DL (<150)
== END ==
LOC: M WUC 10:33
PROVIDERS: ATTEND Physician Assistant
DX: E11.9 Type 2 diabetes mellitus without complications (principal); E78.5 Hyperlipidemia, unspecified

== ENCOUNTER → 2024-11-18 | Outpatient (REF) | payer OTHER ==
[2024-11-18 19:15] LABS: ALBUMIN 3.5 G/DL (3.2-5.2); ALKALINE PHOSPHATASE 34 U/L (35-104); ALT/SGPT 16 U/L (7.0-40); AST/SGOT 8 U/L (<34); BILIRUBIN,TOTAL 0.3 MG/DL (0.3-1.2); BLOOD UREA NITROGEN 14 MG/DL (9-23); CALCIUM LEVEL 9.1 MG/DL (8.5-10.1); CARBON DIOXIDE LEVEL 26 MMOL/L (20-31); CHLORIDE LEVEL 105 MMOL/L (98-107); CHOLESTEROL LEVEL 139 MG/DL (<200); CHOLESTEROL RISK RATIO 3.23 (<5); CREATININE FOR GFR 0.46 MG/DL (0.55-1.30); GLOMERULAR FILTRATION RATE > 90.0 (>60); GLUCOSE, FASTING 107 MG/DL (60-100); LDL CHOLESTEROL 72.2 MG/DL (<100); POTASSIUM SERUM 4.8 MMOL/L (3.5-5.1); SODIUM LEVEL 139 MMOL/L (136-145); TOTAL PROTEIN 6.5 G/DL (5.7-8.2); TRIGLYCERIDES LEVEL 119 MG/DL (<150)
[2024-11-18 19:32] LABS: HEMOGLOBIN A1c 5.6 % (4.0-6.0)
== END ==
LOC: M LAB REF 18:03
PROVIDERS: ATTEND Physician Assistant
DX: E78.5 Hyperlipidemia, unspecified (principal); E11.9 Type 2 diabetes mellitus without complications

== ENCOUNTER → 2025-02-25 | Outpatient (CLI) | payer OTHER ==
[2025-02-25 14:18] LABS: MAGNESIUM LEVEL 1.8 MG/DL (1.8-2.4)
[2025-02-25 14:19] LABS: IRON (FE) 66.0 UG/DL (50-170); PERCENT SATURATION 17.8 % (13.2-45.0)
== END ==
LOC: M WUC 11:35
PROVIDERS: ATTEND Nurse Practitioner Family
DX: R42 Dizziness and giddiness (principal)

== ENCOUNTER → 2025-03-10 | Outpatient (REF) | payer OTHER ==
[2025-03-10 19:11] LABS: BASO # 0.0 10^3/uL (0.0-0.2); BASO % 0.3 % (0.0-1.0); EOS # 0.2 10^3/uL (0.0-0.5); EOS % 3.5 % (0.0-3.0); LYMPH # 1.6 10^3/uL (1.5-5.0); LYMPH % 28.4 % (24.0-44.0); MONO # 0.6 10^3/uL (0.0-0.8); MONO % 9.8 % (2.0-8.0); NEUTROPHILS # 3.3 10^3/uL (1.5-8.5); NEUTROPHILS % 57.8 % (36.0-66.0); PLATELET COUNT, AUTOMATED 214 10^3/uL (150-450)
[2025-03-10 19:21] LABS: ALT/SGPT 14 U/L (7.0-40); AST/SGOT 11 U/L (<34); CALCIUM LEVEL 9.5 MG/DL (8.5-10.1); CARBON DIOXIDE LEVEL 24 MMOL/L (20-31); CHLORIDE LEVEL 109 MMOL/L (98-107); CREATININE FOR GFR 0.46 MG/DL (0.55-1.30); GLOMERULAR FILTRATION RATE > 90.0 (>60); POTASSIUM SERUM 4.5 MMOL/L (3.5-5.1); SODIUM LEVEL 143 MMOL/L (136-145)
[2025-03-10 19:26] LABS: TOTAL 25(OH) VITAMIN D 38.8 NG/ML (20.0-100.0)
== END ==
LOC: M LAB REF 17:22
PROVIDERS: ATTEND Nurse Practitioner Family
DX: R42 Dizziness and giddiness (principal)

== ENCOUNTER → 2025-05-21 | Outpatient (REF) | payer OTHER | LOC: M LAB REF 16:59 → EEVIPCON 16:59 | PROVIDERS: ATTEND Surgery | DX: N61.1 Abscess of the breast and nipple (principal) ==

== ENCOUNTER → 2025-05-23 | Outpatient (CLI) | payer OTHER ==
[~2025-05-23] MED LIST changes: +ALL10TAB3 PO; +CLIN-250 PO; +LISI20TA33 PO; +OXYC-865 PO; +TIRZ7.5P; +TRI-TAB PO
== END ==
LOC: M WHC 14:48
PROVIDERS: ATTEND Surgery
DX: N61.1 Abscess of the breast and nipple (principal)

== ENCOUNTER → 2025-05-28 | Outpatient (CLI) | payer OTHER ==
[2025-05-28 15:12] LABS: BASO # 0.0 10^3/uL (0.0-0.2); BASO % 0.5 % (0.0-1.0); EOS # 0.3 10^3/uL (0.0-0.5); EOS % 3.9 % (0.0-3.0); LYMPH # 2.0 10^3/uL (1.5-5.0); LYMPH % 31.0 % (24.0-44.0); MONO # 0.6 10^3/uL (0.0-0.8); MONO % 9.4 % (2.0-8.0); NEUTROPHILS # 3.6 10^3/uL (1.5-8.5); NEUTROPHILS % 54.7 % (36.0-66.0); PLATELET COUNT, AUTOMATED 280 10^3/uL (150-450)
[2025-05-28 15:40] LABS: ALT/SGPT 17 U/L (7.0-40); AST/SGOT 12 U/L (<34); CALCIUM LEVEL 8.8 MG/DL (8.5-10.1); CARBON DIOXIDE LEVEL 28 MMOL/L (20-31); CHLORIDE LEVEL 105 MMOL/L (98-107); CREATININE FOR GFR 0.49 MG/DL (0.55-1.30); GLOMERULAR FILTRATION RATE > 90.0 (>60); POTASSIUM SERUM 4.7 MMOL/L (3.5-5.1); SODIUM LEVEL 141 MMOL/L (136-145)
[2025-05-28 16:01] LABS: HCG, SERUM QUALITATIVE NEGATIVE (NEGATIVE)
[2025-05-28 17:53] LABS: ESTIMATED AVERAGE GLUCOSE 114.0 MG/DL (60-110)
== END ==
LOC: M WUC 12:30
PROVIDERS: ATTEND Surgery
DX: N61.1 Abscess of the breast and nipple (principal)

== ENCOUNTER 2025-05-29 08:19 | Day surgery (SDC) | payer OTHER ==
[~2025-05-29] VITALS: Ht 170.2 cm; Wt 105.7 kg
[~2025-05-29 08:19] MED LIST changes: -OXYC-865 PO
[2025-05-29] MEDS ORDERED: LIDOCAINE 2% 100 MG/5 ML SDV (FOR ANES.) As Ordered ONE (08:53)
[2025-05-29] MEDS ORDERED: MIDAZOLAM INJ 2 MG/2 ML VIAL As Ordered ONE (08:54)
[2025-05-29] MEDS: LR 1,000 ML IV SCH (09:10)
[2025-05-29] MEDS ORDERED: dexAMETHasone 4 MG/ML 1 ML VIAL As Ordered ONE (10:40)
[2025-05-29] MEDS ORDERED: ONDANSETRON 4MG/2ML VIAL As Ordered ONE (10:41)
[2025-05-29] MEDS: ceFAZolin SOD 2 GM IV ONCE IV ONE (11:05)
[2025-05-29] MEDS ORDERED: ACETAMINOPHEN 1000MG/100ML IV BAG As Ordered ONE (11:27)
[2025-05-29] MEDS ORDERED: SUGAMMADEX SODIUM 500 MG/5 ML VIAL As Ordered ONE (11:41)
[2025-05-29] MEDS ORDERED: KETOROLAC 30 MG/ML 1 ML VIAL As Ordered ONE (11:41)
[2025-05-29] MEDS ORDERED: ROCURONIUM BROMIDE 50MG/5ML VIAL As Ordered ONE (11:41)
[2025-05-29] MEDS ORDERED: HYDROMORPHONE HCL 0.5 MG/0.5 ML SYRINGE IV PRN (12:15)
[2025-05-29] MEDS ORDERED: OXYC-865 PO (12:45)
[2025-05-29] MEDS: ONDANSETRON 4MG/2ML VIAL IV PRN (13:06)
[2025-05-29 14:35] VITALS: BP 139/94; TEMP 97.5; O2SAT 97
== END 2025-05-29 14:45 | disposition home or self-care (01) ==
LOC: M SDC 08:19
PROVIDERS: ATTEND Surgery
DX: N61.1 Abscess of the breast and nipple (principal); A49.02 Methicillin resistant Staphylococcus aureus infection, unspecified site; Z87.898 Personal history of other specified conditions; E11.9 Type 2 diabetes mellitus without complications; Z79.899 Other long term (current) drug therapy; F17.290 Nicotine dependence, other tobacco product, uncomplicated
CPT/HCPCS: 19020; 81025; 87070; 87075; 87077; 87186; 87205; 88305; J0131; J0665; J0688; J1100; J1885; J2250; J2405; J2765; J3010